=== PATIENT | male | born 1985 | race Caucasian/White ===

== ENCOUNTER 2018-05-31 09:07 | Day surgery (SDC) | payer BC ==
[2018-05-31 09:17] VITALS: BMI 28.3
[2018-05-31 09:54] VITALS: PULSE 84; RESP 20; TEMP 98.4; O2SAT 99
[2018-05-31] MEDS ORDERED: Lactated Ringer's 500 ML IV SCH (10:30)
[2018-05-31] MEDS ORDERED: Propofol 10 mg/ml Inj (20 ML) ONE ×2 (10:49→11:01)
[2018-05-31] MEDS: Lactated Ringer's 1,000 ML IV ONE (10:50)
[2018-05-31 11:39] VITALS: BP 123/69
== END 2018-05-31 11:40 | disposition home or self-care (01) ==
LOC: C.ENDO 09:07
PROVIDERS: ATTEND Internal Medicine Gastroenterology
DX: K29.50 Unspecified chronic gastritis without bleeding (principal); R10.13 Epigastric pain
CPT/HCPCS: 43239; 88305; 88313; 88342; J2001; J2704; J7120